=== PATIENT | male | born 1930 | race Caucasian/White ===

== ENCOUNTER 2020-12-22 15:24 | Emergency (ER) | payer MEDICARE, BC ==
[~2020-12-22] VITALS: Ht 185.4 cm; Wt 79.5 kg
[~2020-12-22 15:24] MED LIST: ASPIRIN 32325 MG/TAB PO; CALCIUM GLUCONA50 MG PO; LIPITOR 80MG80 MG PO; MULTIPLE VITAMI1 TAB PO; SIMVASTATIN20 MG PO
[2020-12-22 15:36] VITALS: TEMP 98.1
[2020-12-22] MEDS ORDERED: AMOXICILLIN 8751 TAB PO (16:26)
[2020-12-22 16:47] VITALS: BP 138/82; PULSE 71
== END 2020-12-22 16:45 | disposition home or self-care (01) ==
LOC: COL.ER 15:24
DX: K04.7 Periapical abscess without sinus (principal); Z95.5 Presence of coronary angioplasty implant and graft; Z79.82 Long term (current) use of aspirin